=== PATIENT | male | born 1990 | race Caucasian/White ===

== ENCOUNTER 2017-08-09 02:08 | Emergency (ER) | payer OTHER ==
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
--- NOTE | 2017-08-10 06:45 | CR ---
Right knee: Four views of the right knee were obtained. Comparison: No previous study. Medial and lateral joint spaces are maintained in height. Patellofemoral joint appears within normal limits. No joint effusion is seen. No fracture or other bony abnormality is identified. Impression: 1. No abnormality is appreciated on right knee exam. Diagnostic code #1
== END 2017-08-09 03:47 | disposition home or self-care (01) ==
LOC: JD.ED 02:08
DX: S16.1XXA Strain of muscle, fascia and tendon at neck level, initial encounter (principal); S80.01XA Contusion of right knee, initial encounter; S00.03XA Contusion of scalp, initial encounter; S60.512A Abrasion of left hand, initial encounter; S00.01XA Abrasion of scalp, initial encounter; V89.2XXA Person injured in unspecified motor-vehicle accident, traffic, initial encounter
CPT/HCPCS: 73562-26-RT; 73562-RT; 99283; 99285

== ENCOUNTER 2019-10-02 10:57 | Emergency (ER) | payer OTHER ==
[2019-10-02] MEDS ORDERED: HYDROmorphone 1 MG/ML Syringe IVPUSH STA (11:21)
[2019-10-02] MEDS ORDERED: Ondansetron 4 MG/2 ML SDV IVPUSH ONE (11:21)
[2019-10-02] MEDS ORDERED: Sodium Chloride 0.9% 1,000 ML IV ONE (11:22)
[2019-10-02] MEDS ORDERED: Sodium Chloride 0.9% 10 ML Syringe FLUSH PRN (11:28)
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
--- NOTE | 2019-10-02 14:08 | CT ---
CT abdomen and pelvis Technique: Multiple axial sections were obtained from above the dome of the diaphragm inferiorly through the pubic symphysis. Intravenous and oral contrast was utilized. Delayed images were also obtained through the bladder. Comparison: No previous abdominal imaging is available. Findings: Focal loop of small bowel shows mild wall thickening. Other opacified small bowel loops appear normal in appearance. Appendix is seen and is normal in size. Other findings: Visualized lung bases show nothing acute. Liver contains no focal abnormality. Spleen appears within normal limits in size. There is a low density finding within the lower spleen measuring 1.2 cm. No additional abnormality is seen within the spleen. Adrenal glands show no nodule. Single right kidney is seen with no overt left kidney being present. Right kidney shows some compensatory hypertrophy. Right kidney shows minimal cortical lesion which is too small to characterize but most likely represents a small cyst. Gallbladder contains no calcified gallstones. Pancreas is within normal limits. Aorta shows no aneurysm. No retroperitoneal adenopathy or mesenteric abnormalities are seen. No pelvic mass or adenopathy is seen. No free fluid or inflammatory change is identified. Delayed images shows contrast excretion with contrast seen within the right ureter and bladder. Impression: 1. Single loop of small bowel showing mild bowel wall thickening. Findings presumably represent a focal enteritis. At this point, small bowel lymphoma can have a similar appearance although this is felt less likely since no other areas of adenopathy are seen. 2. Single kidney with right kidney showing mild compensatory hypertrophy. 3. Other findings believed to be incidental. Diagnostic code #9 This report was dictated in [place] Standard Time
== END 2019-10-02 15:05 | disposition home or self-care (01) ==
LOC: JD.ED 10:57
DX: K52.9 Noninfective gastroenteritis and colitis, unspecified (principal); A08.8 Other specified intestinal infections
CPT/HCPCS: 36415; 74177; 80053; 81001; 85007; 85027; 87046; 87086; 87328; 87329; 87427; 87804; 89055; 96361; 96374; 96375; 99284; J1170; J2405; J7030; 87177; 99283